=== PATIENT | female | born 1960 | race Caucasian/White ===

== ENCOUNTER → 2023-03-04 | Outpatient (CLI) | payer OTHER ==
--- NOTE | 2023-03-04 10:48 | XR ---
EXAMINATION TYPE: XR chest 2V DATE OF EXAM: 03/04/2023 10:22 AM COMPARISON: None TECHNIQUE: XR chest 2V Frontal and lateral views of the chest. CLINICAL INDICATION:Female, 62 years old with history of R05.9; FINDINGS: Lungs/Pleura: There is no evidence of pleural effusion, focal consolidation, or pneumothorax. Pulmonary vascularity: Unremarkable. Heart/mediastinum: Cardiomediastinal silhouette is unremarkable. Musculoskeletal: No acute osseous pathology. Dextrocurvature of the thoracic spine. IMPRESSION: No acute cardiopulmonary disease/process.
[2023-03-04 10:56] LABS: HGB 15.3 gm/dL (11.4-16.0); MCH 31.4 pg (25.0-35.0); MCHC 33.9 g/dL (31.0-37.0); MCV 92.4 fL (80.0-100.0); Mean Platelet Volume 6.9; Platelet Count 249 k/uL (150-450); RBC 4.87 m/uL (3.80-5.40); RDW 13.6 % (11.5-15.5); WBC 4.1 k/uL (3.8-10.6)
[2023-03-04 11:18] LABS: ALT 31 U/L (4-34); AST 28 U/L (14-36); African American GFR (CKD) >90 (>60 ml/min/1.73 sqM); Albumin 4.5 g/dL (3.5-5.0); Albumin/Globulin Ratio 1.5; Alkaline Phosphatase 113 U/L (38-126); Anion Gap 10 mmol/L; Blood Urea Nitrogen 20 mg/dL (7-17); Calcium 9.3 mg/dL (8.4-10.2); Carbon Dioxide 25 mmol/L (22-30); Chloride 104 mmol/L (98-107); Globulin 3.1 g/dL; Glucose 106 mg/dL (74-99); Non-African American GFR(CKD) >90 (>60 ml/min/1.73 sqM); Potassium 4.2 mmol/L (3.5-5.1); Sodium 139 mmol/L (137-145); Total Bilirubin 0.6 mg/dL (0.2-1.3); Total Protein 7.6 g/dL (6.3-8.2)
[2023-03-04 16:23] LABS: Chol/HDL Ratio 4.41 Ratio; LDL Cholesterol,Calculated 152.9 mg/dL (0.0-131.0)
[2023-03-04 16:54] LABS: Appearance,Urine Clear (Clear); Bilirubin,Urine Negative (Negative); Blood,Urine Negative (Negative); Color,Urine Yellow (Yellow); Ketones,Urine Negative (Negative); Nitrite,Urine Negative (Negative); PH, Urine 7.5; Urobilinogen,Urine 0.2 E.U./DL
[2023-03-04 17:08] LABS: Bacteria,Urine None Seen (None Seen)
== END | disposition home or self-care (01) ==
LOC: RADXRMAIN 10:04
PROVIDERS: ATTEND Family Medicine
DX: Z00.00 Encounter for general adult medical examination without abnormal findings (principal); R05.9 Cough, unspecified; F31.9 Bipolar disorder, unspecified
CPT/HCPCS: 71046; 80053; 80061; 80175; 81001; 82306; 83036; 84443; 85027

== ENCOUNTER → 2024-03-24 | Outpatient (CLI) | payer BC ==
[2024-03-24 15:34] LABS: Chol/HDL Ratio 4.21 Ratio; LDL Cholesterol,Calculated 167.9 mg/dL (0.0-131.0)
[2024-03-24 15:43] LABS: NT-Pro-B-Type Natriuretic Pept 51 pg/mL (0-125)
== END | disposition home or self-care (01) ==
LOC: LABWHC1 11:19
PROVIDERS: ATTEND Student in an Organized Health Care Education/Training Program
CPT/HCPCS: 36415; 80061; 83036; 83880